=== PATIENT | male | born 1945 | race Caucasian/White ===

== ENCOUNTER 2016-06-14 16:29 | Observation (INO) | payer BC, OTHER ==
[~2016-06-14] VITALS: Ht 185.4 cm; Wt 103.5 kg
[~2016-06-14 16:29] MED LIST: ADULT LOW DOSE81 M1 PO; AZITHROMYCIN250 MG; Ecotrin PO; LISINOPRIL20 MG PO; LOPRESSOR25 MG PO; MIRALAX17 GM PO; Pravachol PO; REGLAN10 MG PO; SOTALOL80 MG PO; TRAMADOL HCL50 MG PO; Theragran PO; ULTRAM50 MG PO; VICODIN,LORT1 TABLET PO; XARELTO10 MG PO; XARELTO20 MG
[2016-06-14 18:47] LABS: EOSINOPHIL (%) 0.3 % (0-5); HEMATOCRIT 37.9 % (38.0-50.0); IMMATURE GRANULOCYTE (%) 0.1 % (0.0-0.7); IMMATURE GRANULOCYTE COUNT 0.1 K/uL; LYMPHOCYTE COUNT 1.9 K/uL (1.0-2.8); MCH 28.7 PG (29.0-34.0); MCHC 35.1 G/DL (30.0-36.0); MCV 81.7 FL (86-99); MONOCYTE (%) 15.8 % (3-12); MONOCYTE COUNT 1.1 K/uL (0-0.8); NEUTROPHIL (%) 56.8 % (45-76); NEUTROPHIL COUNT 4.1 K/uL (1.8-6.4); PLATELET COUNT 192 K/uL (156-360); RBC DIS.WIDTH-CV 14.7 % (11.8-14.6); RBC DIS.WIDTH-SD 42.3 % (39-53); RED BLOOD COUNT 4.64 M/uL (4.00-5.50); WHITE BLOOD COUNT 7.2 K/uL (4.1-10.2)
[2016-06-14 18:55] LABS: PROTHROMBIN TIME 10.5 (9.2-11.2); PTT 32.2 (25-32)
[2016-06-14 18:57] LABS: CHLORIDE 105 mEq/L (99-109); POTASSIUM 4.8 mEq/L (3.7-5.4); SODIUM 139 mEq/L (136-147)
[2016-06-14 19:00] LABS: GLUCOSE 98 mg/dL (70-99)
[2016-06-14 19:01] LABS: ANION GAP 12 MEQ/L (2-14)
[2016-06-14 19:02] LABS: TOTAL BILIRUBIN 1.1 mg/dL (0.0-1.0)
[2016-06-14 19:03] LABS: ALKALINE PHOSPHATASE 65 IU/L (3-129); GFR ESTIMATE (CALCULATED) 53 mL/min/
[2016-06-14] MEDS ORDERED: ALDACTONE25 MG PO (19:03)
[2016-06-14] MEDS ORDERED: TOPROL XL25 MG PO (19:03)
[2016-06-14 19:04] LABS: UREA NITROGEN (BUN) 31 mg/dL (9-23)
[2016-06-14] MEDS ORDERED: ELIQUIS5 MG PO (19:04)
[2016-06-14] MEDS ORDERED: ZESTRIL20 MG PO (19:04)
[2016-06-14] MEDS ORDERED: PROTONIX40 MG PO (19:04)
[2016-06-14 19:08] LABS: TROP-I INTERPRETATION NEGATIVE; TROPONIN-I 0.02 ng/mL (0.0-0.30)
[2016-06-14] MEDS ORDERED: VITAMIN D31000 UNI2 PO (19:15)
[2016-06-14] MEDS ORDERED: VITAMIN C1000 MG PO (19:15)
[2016-06-14] MEDS ORDERED: MAGNESIUM250 MG PO (19:16)
[2016-06-14] MEDS ORDERED: B-COMPLEX-VITA1 EACH PO (19:16)
[2016-06-15 02:19] LABS: TROP-I INTERPRETATION NEGATIVE; TROPONIN-I 0.03 ng/mL (0.0-0.30)
[2016-06-15 03:17] LABS: HDL CHOLESTEROL 31 MG/DL (Desirable>=40); LDL CHOLESTEROL 141 mg/dL (Desirable<100); NON-HDL CHOLESTEROL 166 mg/dL (Desirable<160); TOTAL CHOLESTEROL 197 mg/dL (Desirable<200); TRIGLYCERIDES 125 MG/DL (Normal: <150)
[2016-06-15 07:18] VITALS: BP 135/59
[2016-06-15 09:20] LABS: TROP-I INTERPRETATION NEGATIVE; TROPONIN-I 0.03 ng/mL (0.0-0.30)
[2016-06-15] MEDS ORDERED: IMDUR60 MG PO (14:30)
[2016-06-15] MEDS ORDERED: FUROSEMIDE40 MG PO (14:31)
[2016-06-15] MEDS ORDERED: LIPITOR40 MG PO (15:08)
== END 2016-06-15 19:25 | disposition home or self-care (01) ==
LOC: EME 16:29 → EDOF 06-15 01:04 → 5WEST 06-15 01:04 → EDOF 06-15 01:04 → 5WEST 06-15 06:59
PROVIDERS: Emergency Medicine; Physician Assistant
DX: I25.700 Atherosclerosis of coronary artery bypass graft(s), unspecified, with unstable angina pectoris (principal); I25.5 Ischemic cardiomyopathy; I25.82 Chronic total occlusion of coronary artery; I25.2 Old myocardial infarction; I10 Essential (primary) hypertension; E78.5 Hyperlipidemia, unspecified; I48.2 Chronic atrial fibrillation; Z95.810 Presence of automatic (implantable) cardiac defibrillator; Z82.49 Family history of ischemic heart disease and other diseases of the circulatory system; Z79.01 Long term (current) use of anticoagulants
CPT/HCPCS: 71010; 80053; 80061; 84484; 85025; 85610; 85730; 93005; 99281; 99284; C1750; C1769; C1887; G0378; J1644; J2250; J2270; J3010; J7040; J7050